=== PATIENT | female | born 1940 | race Caucasian/White ===

== ENCOUNTER → 2024-05-13 | Outpatient (CLI) | payer MEDICARE ==
[2024-05-14 05:18] LABS: Alternaria alternata IgE <0.10 kU/L; Aspergillus fumagatus IgE <0.10 kU/L; Birch IgE <0.10 kU/L; Cat Epith & Dander IgE <0.10 kU/L; Cladosporian herbarum IgE <0.10 kU/L; Cockroach IgE <0.10 kU/L; Dermato. farinae IgE <0.10 kU/L; Dog Dander IgE 0.14 kU/L; Elm IgE <0.10 kU/L; Maple (Box Elder) IgE <0.10 kU/L; Oak IgE <0.10 kU/L; Red Top (Bentgrass) IgE <0.10 kU/L
== END | disposition home or self-care (01) ==
LOC: LABWHC1 15:17
PROVIDERS: ATTEND Otolaryngology
DX: J30.89 Other allergic rhinitis (principal)
CPT/HCPCS: 36415; 82785; 86003

== ENCOUNTER 2025-05-20 08:19 | Day surgery (SDC) | payer MEDICARE ==
[2025-05-19 12:55] VITALS: BMI 35.4
[2025-05-20] MEDS: LACTATED RINGERS 1,000 ML IV SCH (08:41)
[2025-05-20] MEDS: IV FLUID CONTINUATION 1,000 ML IV ONE (08:52)
[2025-05-20 09:02] VITALS: TEMP 97.8
[2025-05-20] MEDS ORDERED: PROPOFOL 10 MG/ML 20 ML VIAL IV ONE (09:07)
--- NOTE | 2025-05-20 09:32 | P.PCN ---
Date of Procedure: 05/20/25 Procedure(s) Performed: BRIEF HISTORY: Patient is a 84-year-old pleasant white female scheduled for an elective colonoscopy as a part of evaluation of screening for by history of colon polyps. She does have family history of colon cancer diagnosed in her mother at age 70 and a maternal uncle at age 79. Her last colonoscopy was 3 years ago and according to her was noted to have multiple colon polyps PROCEDURE PERFORMED: Colonoscopy with snare polypectomy. PREOPERATIVE DIAGNOSIS: Screening for prior history of colon polyps. IV sedation per Anesthesia. PROCEDURE: After informed consent was obtained, the patient, was brought into the endoscopy unit. IV sedation was administered by Anesthesia under continuous monitoring. Digital rectal examination was normal. Initially the Olympus CF-160 flexible video colonoscope was then inserted in the rectum, gradually advanced into the cecum without any difficulty. Careful examination was performed as the scope was gradually being withdrawn. Ileocecal valve and the appendiceal orifice were visualized and appeared normal. Prep was excellent. Mucosa of the cecum, ascending colon, appeared normal. In the transverse colon there is a 7 mm polyp that was removed by cold snare polypectomy. In the descending colon there were 4 polyps measuring between 3 mm to 7 mm in size all of which were removed by cold snare polypectomy. Rest of the transverse colon, descending colon, sigmoid colon, and rectum appeared normal scattered sigmoid diverticulosis.. Retroflexion was performed in the rectum and no lesions were seen. The patient tolerated the procedure well. IMPRESSION: 7 mm transverse colon polyp status post cold snare polypectomy 4 polyps in the descending colon measuring between 3 mm to 7 mm in size removed by cold snare polypectomy Scattered sigmoid diverticulosis RECOMMENDATIONS: Findings of this examination were discussed with the patient as well as her family.. She was advised to follow with the biopsy results. Recommended repeat screening colonoscopy in 3 years based on her overall medical condition.
[2025-05-20 09:52] VITALS: BP 133/73; PULSE 65; RESP 18
== END 2025-05-20 10:11 | disposition home or self-care (01) ==
LOC: ORWHC2ENDO 08:19
PROVIDERS: ATTEND Internal Medicine Gastroenterology
DX: Z12.11 Encounter for screening for malignant neoplasm of colon (principal); D12.3 Benign neoplasm of transverse colon; D12.4 Benign neoplasm of descending colon; K57.30 Diverticulosis of large intestine without perforation or abscess without bleeding; I10 Essential (primary) hypertension; J44.9 Chronic obstructive pulmonary disease, unspecified; L71.9 Rosacea, unspecified; F41.9 Anxiety disorder, unspecified; Z86.0100 Personal history of colon polyps, unspecified; Z80.0 Family history of malignant neoplasm of digestive organs; Z85.858 Personal history of malignant neoplasm of other endocrine glands; Z79.899 Other long term (current) drug therapy
CPT/HCPCS: 88305; 45385; J2704